=== PATIENT | male | born 1990 | race African-American/Black ===

== ENCOUNTER 2017-07-06 15:12 | Emergency (ER) | payer MEDICAID ==
[~2017-07-06] VITALS: Ht 180.3 cm; Wt 77.1 kg
[2017-07-06] MEDS ORDERED: GENVOYA TABLET1 EACH PO (15:20)
[2017-07-06 16:34] VITALS: BP 120/74
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
--- NOTE | 2017-07-07 13:41 | Diagnostic Imaging Report ---
Indication: Pain status post injury Technique: XRAY Wrist Complete L Comparison: None Findings: There is no evidence of acute fracture or dislocation. Anatomic alignment and joint spaces are preserved. No radiopaque foreign body seen. Impression: No acute fracture or dislocation.
--- NOTE | 2017-07-07 13:42 | Diagnostic Imaging Report ---
Indication: Pain Technique: XRAY Ankle Compl Min 3v L Comparison: None Findings: There is no evidence of acute fracture. Ankle mortise is intact on these nonstress views. Imaged hindfoot is personally unremarkable. No focal soft tissue abnormality appreciated. No radiopaque foreign body seen. Impression: No evidence of acute fracture or dislocation.
== END 2017-07-06 16:36 | disposition home or self-care (01) ==
LOC: EMR 15:52
DX: S63.502A Unspecified sprain of left wrist, initial encounter (principal); S93.402A Sprain of unspecified ligament of left ankle, initial encounter; V09.9XXA Pedestrian injured in unspecified transport accident, initial encounter; Y92.9 Unspecified place or not applicable
CPT/HCPCS: 99284